=== PATIENT | female | born 1955 | race Caucasian/White ===

== ENCOUNTER 2022-06-10 10:33 | Outpatient (CLI) | payer MEDICARE, BC, SELFPAY ==
[2022-06-10 14:05] LABS: Basophils Absolute Auto 0.02 K/uL (0.00-0.30); Basophils Percent Auto 0.2 % (0.0-3.0); Eosinophils Absolute Auto 0.11 K/uL (0.00-0.50); Eosinophils Percent Auto 1.2 % (0.0-7.0); Hematocrit 40.4 % (33.0-51.0); Hemoglobin* 13.7 gm/dL (12.0-16.0); Immature Granulocytes Abs Auto 0.01 K/uL (0.00-0.30); Immature Granulocytes Pct Auto 0.1 %; Lymphocytes Percent Auto 19.4 % (20-44); Mean Corpuscular HGB Conc 34 gm/dL (32-36); Mean Corpuscular Hemoglobin 32 pg (26-34); Mean Corpuscular Volume 93 fL (80-100); Monocytes Percent Auto 7.1 % (0.0-11.0); Neutrophils Absolute Auto 6.55 K/uL (1.7-7.0); Platelet Count* 321 K/uL (140-440); Red Blood Count 4.33 m/uL (4.00-5.20); White Blood Count* 9.11 K/uL (4.50-11.00)
[2022-06-10 14:11] LABS: Slide Review Reflex No
[2022-06-10 14:42] LABS: Albumin* 4.7 g/dL (3.3-5.0); Chloride* 102 mmol/L (96-114)
[2022-06-10 14:43] LABS: Sodium* 142 mmol/L (135-149)
[2022-06-10 14:45] LABS: Aspartate Amino Transferase* 24 U/L (12-35); Bilirubin Total* 0.8 mg/dL (0.1-1.5); Carbon Dioxide* 29 mmol/L (20-32); Cholesterol* 181 mg/dL (90-199); Creatinine* 0.9 mg/dL (0.5-1.5); Estimated Glomerular Filt Rate 70 ml/min; Total Protein* 7.6 g/dL (6.0-8.3)
[2022-06-10 14:46] LABS: Alanine Aminotransferase* 21 U/L (4-35); Alkaline Phosphatase* 77 U/L (40-150); Blood Urea Nitrogen* 13 mg/dL (7-30); Calcium* 10.9 mg/dL (8.4-10.6); Glucose* 107 mg/dL (60-115); HDL Cholesterol* 67 mg/dL (>=50); LDL Cholesterol Calculated 87 mg/dL (<100); Triglycerides* 133 mg/dL (40-149)
== END 2022-06-10 10:34 | disposition home or self-care (01) ==
PROVIDERS: PCP Nurse Practitioner Family; Visit Provider Nurse Practitioner Family
DX: Z00.00 Encounter for general adult medical examination without abnormal findings (principal); I10 Essential (primary) hypertension; E78.5 Hyperlipidemia, unspecified; Z13.0 Encounter for screening for diseases of the blood and blood-forming organs and certain disorders involving the immune mechanism
CPT/HCPCS: 80053; 80061; 85025

== ENCOUNTER 2022-08-05 11:12 | Outpatient (CLI) | payer MEDICARE, BC, SELFPAY ==
[2022-08-07 05:14] LABS: Vitamin D, 1,25-Dihydroxy 50.8 pg/mL (19.9-79.3)
== END 2022-08-05 11:13 | disposition home or self-care (01) ==
PROVIDERS: PCP Nurse Practitioner Family; Visit Provider Nurse Practitioner Family
DX: E83.52 Hypercalcemia (principal)
CPT/HCPCS: 82310; 82652; 83970

== ENCOUNTER 2022-11-21 15:06 | Outpatient (CLI) | payer MEDICARE, BC, SELFPAY ==
[2022-11-21 22:14] LABS: Basophils Absolute Auto 0.04 K/uL (0.00-0.30); Basophils Percent Auto 0.5 % (0.0-3.0); Eosinophils Absolute Auto 0.33 K/uL (0.00-0.50); Eosinophils Percent Auto 4.4 % (0.0-7.0); Hematocrit 39.6 % (33.0-51.0); Hemoglobin* 13.5 gm/dL (12.0-16.0); Immature Granulocytes Abs Auto 0.02 K/uL (0.00-0.30); Immature Granulocytes Pct Auto 0.3 %; Lymphocytes Absolute Auto 1.95 K/uL (0.90-2.90); Lymphocytes Percent Auto 26.3 % (20-44); Mean Corpuscular HGB Conc 34 gm/dL (32-36); Mean Corpuscular Hemoglobin 32 pg (26-34); Mean Corpuscular Volume 94 fL (80-100); Monocytes Percent Auto 9.7 % (0.0-11.0); Neutrophils Absolute Auto 4.36 K/uL (1.7-7.0); Neutrophils Percent Auto 58.8 % (42.0-72.0); Platelet Count* 283 K/uL (140-440); RDW Coefficient of Variation % 12.5 % (11.5-15.5); Red Blood Count 4.21 m/uL (4.00-5.20); White Blood Count* 7.42 K/uL (4.50-11.00)
[2022-11-21 22:18] LABS: Slide Review Reflex No
[2022-11-21 22:21] LABS: Creatine Kinase* 50 U/L (41-117)
[2022-11-21 22:24] LABS: C Reactive Protein* 0.7 mg/dL (0.5-1.0)
[2022-11-22 00:06] LABS: Erythrocyte SedimentationRate* 23 mm/hr (2-20)
== END 2022-11-21 15:07 | disposition home or self-care (01) ==
PROVIDERS: PCP Nurse Practitioner Family; Visit Provider Nurse Practitioner Family
DX: R53.83 Other fatigue (principal); E83.52 Hypercalcemia; E78.5 Hyperlipidemia, unspecified; M10.9 Gout, unspecified; I10 Essential (primary) hypertension; Z13.0 Encounter for screening for diseases of the blood and blood-forming organs and certain disorders involving the immune mechanism; M79.10 Myalgia, unspecified site
CPT/HCPCS: 36415; 82550; 84443; 85025; 85651; 86140

== ENCOUNTER 2023-03-28 13:14 | Outpatient (CLI) | payer MEDICARE, BC, SELFPAY | END 2023-03-28 13:15 | disposition home or self-care (01) | PROVIDERS: PCP Nurse Practitioner Family; Visit Provider Nurse Practitioner Family | DX: R60.0 Localized edema (principal); I10 Essential (primary) hypertension; R53.82 Chronic fatigue, unspecified; E83.52 Hypercalcemia; E78.5 Hyperlipidemia, unspecified; G25.81 Restless legs syndrome; M10.9 Gout, unspecified | CPT/HCPCS: 80048; 83880 ==

== ENCOUNTER 2023-04-28 10:37 | Outpatient (CLI) | payer MEDICARE, BC, SELFPAY | END 2023-04-28 10:38 | disposition home or self-care (01) | PROVIDERS: PCP Nurse Practitioner Family; Referring Provider Nurse Practitioner Family; Visit Provider Obstetrics & Gynecology | DX: R82.90 Unspecified abnormal findings in urine (principal) | CPT/HCPCS: 87086 ==

== ENCOUNTER 2023-07-31 11:09 | Outpatient (CLI) | payer MEDICARE, BC, SELFPAY | END 2023-07-31 11:10 | disposition home or self-care (01) | PROVIDERS: PCP Nurse Practitioner Family; Visit Provider Nurse Practitioner Family | DX: Z00.00 Encounter for general adult medical examination without abnormal findings (principal); R53.83 Other fatigue; E78.5 Hyperlipidemia, unspecified; I10 Essential (primary) hypertension; M10.9 Gout, unspecified; E83.52 Hypercalcemia | CPT/HCPCS: 80053; 80061; 85025 ==

== ENCOUNTER 2023-10-07 13:53 | Outpatient (CLI) | payer MEDICARE, BC, SELFPAY | END 2023-10-07 13:54 | disposition home or self-care (01) | LOC: KYNREF 13:54 | PROVIDERS: PCP Nurse Practitioner Family; Visit Provider Nurse Practitioner Family | DX: R11.10 Vomiting, unspecified (principal) | CPT/HCPCS: 84484 ==

== ENCOUNTER 2024-05-19 11:00 | Outpatient (CLI) | payer MEDICARE, BC, SELFPAY ==
--- NOTE | 2024-05-19 11:15 | CRLHL7_ITS ---
For Patients: As a result of the 21st Century Cures Act, medical imaging exams and procedure reports are released immediately into your electronic medical record. You may view this report before your referring provider. If you have questions, please contact your health care provider. INDICATION: Difficulty swallowing TECHNIQUE: Modified barium swallow. Fluoroscopic time 1 minutes 16 seconds. FINDINGS/IMPRESSION: Anatomical structures are normal. Swallowing mechanism appears within normal limits. No episodes of penetration or aspiration. No significant findings. Dictated by Bobby Cade MD @ 05/19/2024 12:34:04 PM (Electronically Signed)
--- NOTE | 2024-05-19 12:16 | SLP.EVAL ---
MELLOWING MACHINE OPERATOR Aishwarya Neff Start: 05/19/24 11:54 Freq: Status: Active Protocol: Document 05/19/24 11:55 MJP (Rec: 05/19/24 12:11 MJP Desktop) E-signed By Sanjana Calderon MA, [facility], MELLOWING MACHINE OPERATOR MELLOWING MACHINE OPERATOR System Review History & Reason For Referral Type of Speech Evaluation Modified Barium Swallow Evaluation Rehabilitation Order Evaluation and Treat Date of Order 04/20/24 Reason for Referral Dysphagia Onset Date Of Patient's Problem 04/20/24 Medical Diagnosis Dysphagia Treatment Diagnosis Dysphagia Pertinent Medical History S/p Anterior Cervical Discectomy and Fusion (C5-C6) early 2021. [place]. RLS. HTN. Gout. Depression. Tinnitus. TIA - 2016. Allergies. 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 Pain Pain Location & Comments Stated she has right leg pain today, but comfortable (no pain) sitting in chair for exam Hearing Information Hearing Status Adequate Vision Information Vision Status No glasses Patient Orientation Orientation & Mental Status Alert. Oriented to place, situation. MELLOWING MACHINE OPERATOR Initial Assessment/POC Subjective Information Subjective/Pain Comment Tearful at the beginning of the exam due to leg pain she was experiencing this morning. Following with PT/massage for this. Assessment & Impression Assessment/Impression PATIENT REPORT: Sometimes when I eat, it feels like it's stuck right here (indicating suprasternal notch). It feels like a bubble there. She sometimes has to take a break from eating. Stops and breathes. Sometimes taking sips of liquid helps. She also gets a sensation that it is difficult to breathe after she yawns. Has sneezing after this experience. These symptoms have been going on for about two years, per her recall. MODIFIED BARIUM SWALLOW: ORAL MOTOR EXAM: WNL. Dentition adequate. BARIUM ADMINISTERED: THIN LIQUIDS: Via spoon, cup and straw. Oropharyngeal phase WNL. PUREE SOLID: Via spoon. Oropharyngeal phase WNL. SOFT SOLID (MUFFIN): Oropharyngeal phase WNL. CRACKER: Oral phase WNL. Mild vallecular residue following swallow, cleared spontaneously with an additional, un-cued, swallow. WFL. THIN LIQUIDS: Multiple swallows via straw. One episode of flash penetration due to mild premature spillover. Penetration did not reach level of the vocal cords, and cleared completely with the swallow. WFL. ASSESSMENT: Oropharyngeal swallow is WNL. MELLOWING MACHINE OPERATOR did note a small protrusion at the level of her C5-C6 hardware into the posterior upper esophagus which may be the cause of the sticking sensation Yasmin experiences with meats and dry foods. Advised her to lubricate dry foods with extra sauces and gravies, take small bites with meats and other dry foods, and to wash foods down with liquid. Video swallow images and results/ recommendations reviewed with the patient and she verbalized comprehension. Intervention Plan & Frequency Intervention Plan No further speech/swallow therapy indicated at this time . Therapist Signature & License # I Certify That Therapy Services Provided Therapist Signature & License Number Sanjana Calderon [facility]-MELLOWING MACHINE OPERATOR Lic # [id number] Physician Signature Signature of Physician Indicates Treatment Plan,Medically Needed Services Physician Signature & Date Required Please Sign/Date Here Food Presentation Evaluation Dietary Recommendations Regular: IDDSI Level 7 Liquid Recommendations Thin Liquids: IDDSI Level 0 Dysphagia Education Topics Education Topics Teaching Recipient Patient Teaching Methods Verbal Speech/Language Pathology Billing Units Billing Units Eval Swallow Motion Fluoro 1
--- NOTE | 2024-05-19 14:59 | SLP.EVAL ---
AUTOMOTIVE WHOLESALE PARTS ADVISOR Aishwarya Neff Start: 05/19/24 11:54 Freq: Status: Active Protocol: Document 05/19/24 11:55 MJP (Rec: 05/19/24 12:11 MJP Desktop) E-signed By Sanjana Calderon MA, [facility], AUTOMOTIVE WHOLESALE PARTS ADVISOR AUTOMOTIVE WHOLESALE PARTS ADVISOR System Review History & Reason For Referral Type of Speech Evaluation Modified Barium Swallow Evaluation Rehabilitation Order Evaluation and Treat Date of Order 04/20/24 Reason for Referral Dysphagia Onset Date Of Patient's Problem 04/20/24 Medical Diagnosis Dysphagia Treatment Diagnosis Dysphagia Pertinent Medical History S/p Anterior Cervical Discectomy and Fusion (C5-C6) early 2021. [place]. RLS. HTN. Gout. Depression. Tinnitus. TIA - 2016. Allergies. 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 Pain Pain Location & Comments Stated she has right leg pain today, but comfortable (no pain) sitting in chair for exam Hearing Information Hearing Status Adequate Vision Information Vision Status No glasses Patient Orientation Orientation & Mental Status Alert. Oriented to place, situation. AUTOMOTIVE WHOLESALE PARTS ADVISOR Initial Assessment/POC Subjective Information Subjective/Pain Comment Tearful at the beginning of the exam due to leg pain she was experiencing this morning. Following with PT/massage for this. Assessment & Impression Assessment/Impression PATIENT REPORT: Sometimes when I eat, it feels like it's stuck right here (indicating suprasternal notch). It feels like a bubble there. She sometimes has to take a break from eating. Stops and breathes. Sometimes taking sips of liquid helps. She also gets a sensation that it is difficult to breathe after she yawns. Has sneezing after this experience. These symptoms have been going on for about two years, per her recall. MODIFIED BARIUM SWALLOW: ORAL MOTOR EXAM: WNL. Dentition adequate. BARIUM ADMINISTERED: THIN LIQUIDS: Via spoon, cup and straw. Oropharyngeal phase WNL. PUREE SOLID: Via spoon. Oropharyngeal phase WNL. SOFT SOLID (MUFFIN): Oropharyngeal phase WNL. CRACKER: Oral phase WNL. Mild vallecular residue following swallow, cleared spontaneously with an additional, un-cued, swallow. WFL. THIN LIQUIDS: Multiple swallows via straw. One episode of flash penetration due to mild premature spillover. Penetration did not reach level of the vocal cords, and cleared completely with the swallow. WFL. ASSESSMENT: Oropharyngeal swallow is WNL. AUTOMOTIVE WHOLESALE PARTS ADVISOR did note a small protrusion at the level of her C5-C6 hardware into the posterior upper esophagus which may be the cause of the sticking sensation Yasmin experiences with meats and dry foods. Advised her to lubricate dry foods with extra sauces and gravies, take small bites with meats and other dry foods, and to wash foods down with liquid. Video swallow images and results/ recommendations reviewed with the patient and she verbalized comprehension. Intervention Plan & Frequency Intervention Plan No further speech/swallow therapy indicated at this time . Therapist Signature & License # I Certify That Therapy Services Provided Therapist Signature & License Number Sanjana Calderon [facility]-AUTOMOTIVE WHOLESALE PARTS ADVISOR Lic # [id number] Physician Signature Signature of Physician Indicates Treatment Plan,Medically Needed Services Physician Signature & Date Required Please Sign/Date Here Food Presentation Evaluation Dietary Recommendations Regular: IDDSI Level 7 Liquid Recommendations Thin Liquids: IDDSI Level 0 Dysphagia Education Topics Education Topics Teaching Recipient Patient Teaching Methods Verbal Speech/Language Pathology Billing Units Billing Units Eval Swallow Motion Fluoro 1
--- NOTE | 2024-05-19 17:26 | SLP.EVAL ---
ELECTRO MECHANICAL ENGINEER Aishwarya Neff Start: 05/19/24 11:54 Freq: Status: Active Protocol: Document 05/19/24 11:55 MJP (Rec: 05/19/24 12:11 MJP Desktop) E-signed By Sanjana Calderon MA, [facility] ELECTRO MECHANICAL ENGINEER ELECTRO MECHANICAL ENGINEER System Review History & Reason For Referral Type of Speech Evaluation Modified Barium Swallow Evaluation Rehabilitation Order Evaluation and Treat Date of Order 04/20/24 Reason for Referral Dysphagia Onset Date Of Patient's Problem 04/20/24 Medical Diagnosis Dysphagia Treatment Diagnosis Dysphagia Pertinent Medical History S/p Anterior Cervical Discectomy and Fusion (C5-C6) early 2021. [place]. RLS. HTN. Gout. Depression. Tinnitus. TIA - 2016. Allergies. 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 Pain Pain Location & Comments Stated she has right leg pain today, but comfortable (no pain) sitting in chair for exam Hearing Information Hearing Status Adequate Vision Information Vision Status No glasses Patient Orientation Orientation & Mental Status Alert. Oriented to place, situation. ELECTRO MECHANICAL ENGINEER Initial Assessment/POC Subjective Information Subjective/Pain Comment Tearful at the beginning of the exam due to leg pain she was experiencing this morning. Following with PT/massage for this. Assessment & Impression Assessment/Impression PATIENT REPORT: Sometimes when I eat, it feels like it's stuck right here (indicating suprasternal notch). It feels like a bubble there. She sometimes has to take a break from eating. Stops and breathes. Sometimes taking sips of liquid helps. She also gets a sensation that it is difficult to breathe after she yawns. Has sneezing after this experience. These symptoms have been going on for about two years, per her recall. MODIFIED BARIUM SWALLOW: ORAL MOTOR EXAM: WNL. Dentition adequate. BARIUM ADMINISTERED: THIN LIQUIDS: Via spoon, cup and straw. Oropharyngeal phase WNL. PUREE SOLID: Via spoon. Oropharyngeal phase WNL. SOFT SOLID (MUFFIN): Oropharyngeal phase WNL. CRACKER: Oral phase WNL. Mild vallecular residue following swallow, cleared spontaneously with an additional, un-cued, swallow. WFL. THIN LIQUIDS: Multiple swallows via straw. One episode of flash penetration due to mild premature spillover. Penetration did not reach level of the vocal cords, and cleared completely with the swallow. WFL. ASSESSMENT: Oropharyngeal swallow is WNL. ELECTRO MECHANICAL ENGINEER did note a small protrusion at the level of her C5-C6 hardware into the posterior upper esophagus which may be the cause of the sticking sensation Yasmin experiences with meats and dry foods. Advised her to lubricate dry foods with extra sauces and gravies, take small bites with meats and other dry foods, and to wash foods down with liquid. Video swallow images and results/ recommendations reviewed with the patient and she verbalized comprehension. Intervention Plan & Frequency Intervention Plan No further speech/swallow therapy indicated at this time . Therapist Signature & License # I Certify That Therapy Services Provided Therapist Signature & License Number Sanjana Calderon [facility])-ELECTRO MECHANICAL ENGINEER Lic # [id number] Physician Signature Signature of Physician Indicates Treatment Plan,Medically Needed Services Physician Signature & Date Required Please Sign/Date Here Food Presentation Evaluation Dietary Recommendations Regular: IDDSI Level 7 Liquid Recommendations Thin Liquids: IDDSI Level 0 Dysphagia Education Topics Education Topics Teaching Recipient Patient Teaching Methods Verbal Speech/Language Pathology Billing Units Billing Units Eval Swallow Motion Fluoro 1
--- NOTE | 2024-05-25 08:51 | SLP.EVAL ---
PROSTHETIC ASSISTANT Aishwarya Neff Start: 05/19/24 11:54 Freq: Status: Discharge Protocol: Document 05/19/24 11:55 MJP (Rec: 05/19/24 12:11 MJP Desktop) E-signed By Sanjana Calderon MA, [facility], PROSTHETIC ASSISTANT PROSTHETIC ASSISTANT System Review History & Reason For Referral Type of Speech Evaluation Modified Barium Swallow Evaluation Rehabilitation Order Evaluation and Treat Date of Order 04/20/24 Reason for Referral Dysphagia Onset Date Of Patient's Problem 04/20/24 Medical Diagnosis Dysphagia Treatment Diagnosis Dysphagia Pertinent Medical History S/p Anterior Cervical Discectomy and Fusion (C5-C6) early 2021. [place]. RLS. HTN. Gout. Depression. Tinnitus. TIA - 2016. Allergies. 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 Pain Pain Location & Comments Stated she has right leg pain today, but comfortable (no pain) sitting in chair for exam Hearing Information Hearing Status Adequate Vision Information Vision Status No glasses Patient Orientation Orientation & Mental Status Alert. Oriented to place, situation. PROSTHETIC ASSISTANT Initial Assessment/POC Subjective Information Subjective/Pain Comment Tearful at the beginning of the exam due to leg pain she was experiencing this morning. Following with PT/massage for this. Assessment & Impression Assessment/Impression PATIENT REPORT: Sometimes when I eat, it feels like it's stuck right here (indicating suprasternal notch). It feels like a bubble there. She sometimes has to take a break from eating. Stops and breathes. Sometimes taking sips of liquid helps. She also gets a sensation that it is difficult to breathe after she yawns. Has sneezing after this experience. These symptoms have been going on for about two years, per her recall. MODIFIED BARIUM SWALLOW: ORAL MOTOR EXAM: WNL. Dentition adequate. BARIUM ADMINISTERED: THIN LIQUIDS: Via spoon, cup and straw. Oropharyngeal phase WNL. PUREE SOLID: Via spoon. Oropharyngeal phase WNL. SOFT SOLID (MUFFIN): Oropharyngeal phase WNL. CRACKER: Oral phase WNL. Mild vallecular residue following swallow, cleared spontaneously with an additional, un-cued, swallow. WFL. THIN LIQUIDS: Multiple swallows via straw. One episode of flash penetration due to mild premature spillover. Penetration did not reach level of the vocal cords, and cleared completely with the swallow. WFL. ASSESSMENT: Oropharyngeal swallow is WNL. PROSTHETIC ASSISTANT did note a small protrusion at the level of her C5-C6 hardware into the posterior upper esophagus which may be the cause of the sticking sensation Yasmin experiences with meats and dry foods. Advised her to lubricate dry foods with extra sauces and gravies, take small bites with meats and other dry foods, and to wash foods down with liquid. Video swallow images and results/ recommendations reviewed with the patient and she verbalized comprehension. Intervention Plan & Frequency Intervention Plan No further speech/swallow therapy indicated at this time . Therapist Signature & License # I Certify That Therapy Services Provided Therapist Signature & License Number Sanjana Calderon [facility]-PROSTHETIC ASSISTANT Lic # [id number] Physician Signature Signature of Physician Indicates Treatment Plan,Medically Needed Services Physician Signature & Date Required Please Sign/Date Here Food Presentation Evaluation Dietary Recommendations Regular: IDDSI Level 7 Liquid Recommendations Thin Liquids: IDDSI Level 0 Dysphagia Education Topics Education Topics Teaching Recipient Patient Teaching Methods Verbal Speech/Language Pathology Billing Units Billing Units Eval Swallow Motion Fluoro 1
== END 2024-05-19 11:01 | disposition home or self-care (01) ==
LOC: RAD 11:01
PROVIDERS: PCP Nurse Practitioner Family; Visit Provider Nurse Practitioner Family
DX: R13.10 Dysphagia, unspecified (principal)
CPT/HCPCS: 74230; 92611

== ENCOUNTER 2024-08-23 11:01 | Outpatient (CLI) | payer MEDICARE, BC, SELFPAY | END 2024-08-23 11:02 | disposition home or self-care (01) | PROVIDERS: PCP Nurse Practitioner Family; Visit Provider Nurse Practitioner Family | DX: R73.09 Other abnormal glucose (principal); E78.9 Disorder of lipoprotein metabolism, unspecified; K59.00 Constipation, unspecified; I10 Essential (primary) hypertension; Z13.21 Encounter for screening for nutritional disorder; M10.9 Gout, unspecified; E78.5 Hyperlipidemia, unspecified; R60.0 Localized edema; R53.83 Other fatigue; M85.80 Other specified disorders of bone density and structure, unspecified site; R00.2 Palpitations; R82.90 Unspecified abnormal findings in urine | CPT/HCPCS: 80053; 80061; 81001; 82306; 84443; 85025; 87086 ==

== ENCOUNTER 2024-08-27 11:24 | Outpatient (CLI) | payer MEDICARE, BC, SELFPAY | END 2024-08-27 11:25 | disposition home or self-care (01) | LOC: NFLDREF 09-01 00:01 | PROVIDERS: PCP Nurse Practitioner Family; Referring Provider Nurse Practitioner Family; Visit Provider Nurse Practitioner Family | DX: N32.89 Other specified disorders of bladder (principal); N39.0 Urinary tract infection, site not specified | CPT/HCPCS: 81001; 87086 ==

== ENCOUNTER 2024-08-30 10:50 | Outpatient (CLI) | payer MEDICARE, BC, SELFPAY ==
--- NOTE | 2024-08-30 11:00 | CRLHL7_ITS ---
For Patients: As a result of the Century Cures Act, medical imaging exams and procedure reports are released immediately into your electronic medical record. You may view this report before your referring provider. If you have questions, please contact your health care provider. INDICATION: Microscopic hematuria; rule out kidney stone. COMPARISON: None. TECHNIQUE: CT abdomen and pelvis without intravenous contrast; coronal and sagittal reformats. FINDINGS: No nodules through the lung bases. No evidence of pleural effusion. No focal hepatic or splenic pathology. No pancreatic pathology. The gallbladder is unremarkable. No adrenal pathology. 2 mm nonobstructing calculus lower pole calyx left kidney. No obstructive uropathy or perinephric pathology. No ureteral calculi. No retroperitoneal lymphadenopathy. Normal appendix. CT study of the pelvis is unremarkable. Status post hysterectomy. Impression: 1. A 2mm nonobstructing calculus lower pole calyx left kidney. 2. No obstructive uropathy or perinephric pathology. 3. Status post hysterectomy. Please note that all CT scans at this facility use dose modulation, iterative reconstruction, and/or weight-based dosing when appropriate to reduce radiation dose to as low as reasonably achievable. Dictated by Aki Savage MD @ 08/30/2024 12:02:46 PM (Electronically Signed)
== END 2024-08-30 10:51 | disposition home or self-care (01) ==
PROVIDERS: PCP Nurse Practitioner Family; Visit Provider Nurse Practitioner Family
DX: R31.29 Other microscopic hematuria (principal); N20.0 Calculus of kidney; R39.9 Unspecified symptoms and signs involving the genitourinary system
CPT/HCPCS: 74176

== ENCOUNTER 2024-10-22 14:18 | Outpatient (CLI) | payer MEDICARE, BC, SELFPAY ==
--- NOTE | 2024-10-22 14:30 | CRLHL7_ITS ---
For Patients: As a result of the Century Cures Act, medical imaging exams and procedure reports are released immediately into your electronic medical record. You may view this report before your referring provider. If you have questions, please contact your health care provider. EXAM: MRI OF THE RIGHT SHOULDER WITHOUT CONTRAST CLINICAL INDICATION: Right shoulder pain. COMPARISON PLAIN FILMS: 02/19/2024. COMPARISON CROSS-SECTIONAL IMAGING STUDIES: None available at time of interpretation. TECHNICAL: Axial, sagittal oblique and coronal oblique T1, PD, PD FS and T2-weighted images. Shoulder surface coil. FINDINGS: ROTATOR CUFF TENDONS AND MUSCLES AND DELTOID: Supraspinatus: 0.5 cm low-grade partial-thickness articular surface tear of the distal supraspinatus tendon accounts for less than half of the tendon thickness. Diffuse increased signal consistent with moderate tendinopathy. Small ganglion along the distal bursal surface. No muscle atrophy or edema. Infraspinatus: There is a low-grade delaminating tear of the anterior aspect of the infraspinatus tendon with adjacent ganglion of the myotendinous junction. Moderate tendinopathy. No muscle atrophy or edema. Subscapularis: Mild tendinopathy. No tendon tear. No muscle atrophy or edema. Teres Minor: No tendinosis, tendon tearing, muscle atrophy or muscle edema. Deltoid: No muscle atrophy or edema. BURSA: Subacromial-subdeltoid: Mild edema in the subacromial subdeltoid bursa. BICEPS TENDON, LONG HEAD: Mild tendinopathy. No tendon tear. No medial subluxation. CORACOACROMIAL ARCH: Acromial Morphology: Type 2 acromial morphology. No abnormal lateral or anterior downward sloping of the acromion. No significant subacromial spur. No os acromiale. Acromiohumeral Interval: Normal. Coracohumeral Interval: Normal. ACROMIOCLAVICULAR JOINT REGION: AC Joint: Moderate arthropathy with inferior marginal osteophytes and mass effect on the supraspinatus. Ligaments: The coracoclavicular ligaments are intact. GLENOHUMERAL JOINT: Joint space: Moderate-sized joint effusion. Mild synovitis. 0.5 cm loose body in the long head of the biceps tendon sheath. Humeral Head Articular Cartilage: Moderate to high-grade thinning and fissuring centrally and superiorly. Glenoid Articular Cartilage: Moderate to high-grade thinning anteriorly and inferiorly with a small amount of subchondral cystic change. Labrum: Tear of the superior labrum posterior to the biceps labral anchor complex and posterior labrum superiorly. No paralabral cyst. Alignment: Maintained. Capsule: No capsular edema or abnormal capsular thickening. OSSEOUS STRUCTURES: No fracture, marrow edema or marrow replacement process. OTHER FINDINGS: There is no abnormality within the suprascapular or spinoglenoid notches nor within the quadrilateral space. No axillary adenopathy or mass. IMPRESSION: 1. Small low-grade partial-thickness articular surface tear of the distal supraspinatus tendon with moderate tendinopathy. Small ganglion along the bursal surface. 2. Low-grade delaminating tear anteriorly with ganglion cyst at the myotendinous junction. Moderate tendinopathy. 3. Mild subscapularis tendinopathy. 4. Mild long head of the biceps tendinopathy. 5. Areas of high grade glenohumeral chondromalacia. Joint effusion and synovitis. Small intra-articular body in the long head of the biceps tendon sheath. 6. Tear of the junction of the superior and posterior labrum. 7. Edema in the subacromial subdeltoid bursa. 8. Moderate arthropathy of the acromioclavicular joint with mass effect on the supraspinatus. Dictated by Samir Sexton MD @ 10/25/2024 9:35:44 AM (Electronically Signed)
== END 2024-10-22 14:19 | disposition home or self-care (01) ==
LOC: MRI 14:20
PROVIDERS: PCP Nurse Practitioner Family; Visit Provider Nurse Practitioner Family
DX: M25.511 Pain in right shoulder (principal); M75.101 Unspecified rotator cuff tear or rupture of right shoulder, not specified as traumatic; M67.411 Ganglion, right shoulder; M94.211 Chondromalacia, right shoulder; S43.431A Superior glenoid labrum lesion of right shoulder, initial encounter
CPT/HCPCS: 73221

== ENCOUNTER 2024-12-27 09:40 | Outpatient (CLI) | payer MEDICARE, BC, SELFPAY | END 2024-12-27 09:41 | disposition home or self-care (01) | LOC: NFLDREF 19:50 | PROVIDERS: PCP Nurse Practitioner Family; Referring Provider Nurse Practitioner Family; Visit Provider Nurse Practitioner Family | DX: E78.5 Hyperlipidemia, unspecified (principal) | CPT/HCPCS: 80061 ==

== ENCOUNTER 2025-04-01 17:18 | Outpatient (CLI) | payer MEDICARE, BC, SELFPAY | END 2025-04-01 17:19 | disposition home or self-care (01) | PROVIDERS: PCP Nurse Practitioner Family; Visit Provider Nurse Practitioner Family | DX: E78.5 Hyperlipidemia, unspecified (principal) | CPT/HCPCS: 80061 ==